=== PATIENT | female | born 1955 | race Caucasian/White ===

== ENCOUNTER 2016-11-10 10:50 | Emergency (ER) | payer OTHER ==
[~2016-11-10] VITALS: Ht 162.6 cm; Wt 73.5 kg
[~2016-11-10 10:50] MED LIST: ASPIRIN81 MG PO; BACTRIM DS1 TAB PO; CEPHALEXIN500 MG PO; GLU850 PO; SIMVASTATIN40 M1 PO
[2016-11-10 15:31] LABS: BASOPHIL % 0.1 % (0-2)
[2016-11-10 15:35] LABS: PLATELET COUNT 72 x10^3mcL (130-400); RED CELL DISTRIBUTION WIDTH 15.7 % (11.5-14.5)
[2016-11-10 15:48] LABS: ALKALINE PHOSPHATASE 229 U/L (46-116); ALT/SGPT 38 U/L (14-59); AMYLASE 56 U/L (25-115); AST/SGOT 49 U/L (15-37); BILIRUBIN TOTAL 1.7 mg/dL (0.20-1.00); CALCIUM 8.5 mg/dL (8.5-10.1); CARBON DIOXIDE 27.2 mmol/L (21-32); CHLORIDE SERUM 107 mmol/L (98-107); CREATININE SERUM 0.6 mg/dL (0.6-1.0); GFR1 > 60 mL/min; GLUCOSE SERUM 94 mg/dL (74-106); LIPASE 153 IU/L (73-393); POTASSIUM SERUM 3.9 mmol/L (3.5-5.1); SODIUM SERUM 142 mmol/L (136-145); TOTAL PROTEIN, SERUM 6.2 g/dL (6.4-8.2)
[2016-11-10 15:49] LABS: ALBUMIN 2.9 g/dL (3.4-5.0)
[2016-11-10 17:25] VITALS: BP 117/58
== END 2016-11-10 17:25 | disposition home or self-care (01) ==
LOC: ED 10:50
PROVIDERS: Emergency Medicine
DX: R10.13 Epigastric pain (principal); R11.10 Vomiting, unspecified; E11.9 Type 2 diabetes mellitus without complications; Z79.899 Other long term (current) drug therapy
CPT/HCPCS: 83880; J2270; J2405; J3490; J7030; Q0092

== ENCOUNTER 2017-02-21 19:33 | Emergency (ER) | payer OTHER ==
[2017-02-21 19:38] VITALS: BP 147/73
== END 2017-02-21 20:18 | disposition home or self-care (01) ==
LOC: ED 19:33
DX: J30.9 Allergic rhinitis, unspecified (principal); R03.0 Elevated blood-pressure reading, without diagnosis of hypertension; E11.9 Type 2 diabetes mellitus without complications; H57.8 Other specified disorders of eye and adnexa

== ENCOUNTER 2017-04-24 00:09 | Emergency (ER) | payer MEDICAID ==
[2017-04-24 02:28] LABS: BASOPHIL % 1.7 % (0-2); RED CELL DISTRIBUTION WIDTH 13.7 % (11.5-14.5)
[2017-04-24 02:37] LABS: CARBON DIOXIDE 23.6 mmol/L (21-32); CHLORIDE SERUM 107 mmol/L (98-107); CREATININE SERUM 0.7 mg/dL (0.6-1.0); GFR1 > 60 mL/min; GLUCOSE SERUM 108 mg/dL (74-106); POTASSIUM SERUM 4.3 mmol/L (3.5-5.1); SODIUM SERUM 137 mmol/L (136-145)
[2017-04-24 02:40] LABS: PLATELET COUNT 88 x10^3mcL (130-400)
[2017-04-24 02:42] LABS: ALKALINE PHOSPHATASE 290 U/L (46-116); ALT/SGPT 46 U/L (14-59); AMYLASE 53 U/L (25-115); AST/SGOT 67 U/L (15-37); BILIRUBIN TOTAL 1.46 mg/dL (0.20-1.00); LIPASE 150 IU/L (73-393); TOTAL PROTEIN, SERUM 6.9 g/dL (6.4-8.2)
[2017-04-24 02:43] LABS: ALBUMIN 2.9 g/dL (3.4-5.0)
[2017-04-24 05:19] VITALS: BP 126/69
== END 2017-04-24 05:19 | disposition home or self-care (01) ==
LOC: ED 00:09
PROVIDERS: Emergency Medicine
DX: L03.116 Cellulitis of left lower limb (principal); R10.12 Left upper quadrant pain; E11.9 Type 2 diabetes mellitus without complications
CPT/HCPCS: J0696; Q0092

== ENCOUNTER 2017-04-26 10:58 | Emergency (ER) | payer OTHER ==
[~2017-04-26] VITALS: Ht 157.5 cm; Wt 78.6 kg
[2017-04-26 11:05] VITALS: BP 131/67
== END 2017-04-26 11:31 | disposition home or self-care (01) ==
LOC: ED 10:58
DX: L03.116 Cellulitis of left lower limb (principal); I87.8 Other specified disorders of veins; E11.9 Type 2 diabetes mellitus without complications

== ENCOUNTER 2017-05-19 22:05 | Emergency (ER) | payer OTHER ==
[2017-05-19 23:21] LABS: BASOPHIL % 0.5 % (0-2)
[2017-05-19 23:22] LABS: PLATELET COUNT 72 x10^3mcL (130-400)
[2017-05-19 23:28] LABS: CALCIUM 8.3 mg/dL (8.5-10.1); CARBON DIOXIDE 26.9 mmol/L (21-32); CHLORIDE SERUM 107 mmol/L (98-107); CREATININE SERUM 0.8 mg/dL (0.6-1.0); GFR1 > 60 mL/min; GLUCOSE SERUM 122 mg/dL (74-106); POTASSIUM SERUM 3.9 mmol/L (3.5-5.1); SODIUM SERUM 140 mmol/L (136-145)
[2017-05-19 23:35] LABS: ALKALINE PHOSPHATASE 258 U/L (46-116); ALT/SGPT 47 U/L (14-59); AST/SGOT 84 U/L (15-37); BILIRUBIN TOTAL 1.4 mg/dL (0.20-1.00); TOTAL PROTEIN, SERUM 6.7 g/dL (6.4-8.2)
[2017-05-19 23:37] LABS: ALBUMIN 2.8 g/dL (3.4-5.0)
[2017-05-20 00:21] VITALS: BP 118/83
== END 2017-05-20 00:21 | disposition home or self-care (01) ==
LOC: ED 22:05
PROVIDERS: Emergency Medicine
DX: L03.116 Cellulitis of left lower limb (principal); I83.92 Asymptomatic varicose veins of left lower extremity; E11.9 Type 2 diabetes mellitus without complications; Z79.84 Long term (current) use of oral hypoglycemic drugs
CPT/HCPCS: 36415

== ENCOUNTER 2017-10-10 06:37 | Inpatient (IN) | payer OTHER ==
[~2017-10-10] VITALS: Ht 165.1 cm; Wt 76.2 kg
[2017-10-10 07:16] LABS: BASOPHIL % 0.4 % (0-2)
[2017-10-10 07:17] LABS: PLATELET COUNT 66 x10^3mcL (130-400); RED CELL DISTRIBUTION WIDTH 15.8 % (11.5-14.5)
[2017-10-10 07:26] LABS: CALCIUM 8.2 mg/dL (8.5-10.1); CARBON DIOXIDE 23.2 mmol/L (21-32); CHLORIDE SERUM 110 mmol/L (98-107); CREATININE SERUM 0.6 mg/dL (0.6-1.0); GFR1 > 60 mL/min; GLUCOSE SERUM 121 mg/dL (74-106); POTASSIUM SERUM 3.8 mmol/L (3.5-5.1); SODIUM SERUM 141 mmol/L (136-145)
[2017-10-10 07:31] LABS: ALKALINE PHOSPHATASE 283 U/L (46-116); ALT/SGPT 52 U/L (14-59); AST/SGOT 61 U/L (15-37); BILIRUBIN TOTAL 2.1 mg/dL (0.20-1.00); CHOLESTEROL 167 mg/dL (<200); PHOSPHOROUS 3.5 mg/dL (2.5-4.9); TOTAL PROTEIN, SERUM 6.5 g/dL (6.4-8.2)
[2017-10-10 07:32] LABS: ALBUMIN 2.9 g/dL (3.4-5.0); HDL CHOLESTEROL 74 mg/dL (40-60)
[2017-10-10] MEDS ORDERED: METFORMIN HCL1000 MG PO (08:19)
[2017-10-10] MEDS ORDERED: LASIX20 MG PO (08:20)
[2017-10-10] MEDS ORDERED: POTASSIUM CHLO10 MEQ PO (08:20)
[2017-10-10 10:19] LABS: microscopic required? NO
[2017-10-10 10:40] LABS: UA SPECIFIC GRAVITY <=1.005 (1.005-1.035); urine erythrocyte NEGATIVE (NEGATIVE)
[2017-10-10 10:40] LABS: T3 TOTAL 1.06 ng/mL
[2017-10-10 10:44] LABS: CHOLESTEROL/HDL RATIO 2.2
[2017-10-10 10:52] LABS: AMPHETAMINE QUAL UR NONE DETECTED (NEG <=1000)
[2017-10-10 10:55] LABS: FREE T4 1.13 ng/dL (0.76-1.46); FREE THYROXINE INDEX 2.1 ug/dL (1.4-4.5); T4(THYROXINE) 6.5 ug/dL (4.7-13.3)
[2017-10-10 11:36] VITALS: BP 148/64
[2017-10-10 17:42] VITALS: BP 130/63
[2017-10-10 20:49] VITALS: BP 110/50
[2017-10-11 05:32] VITALS: BP 136/56
[2017-10-11 07:22] LABS: BASOPHIL % 0.6 % (0-2)
[2017-10-11 07:23] LABS: PLATELET COUNT 63 x10^3mcL (130-400); RED CELL DISTRIBUTION WIDTH 15.3 % (11.5-14.5)
[2017-10-11 07:38] LABS: CALCIUM 7.8 mg/dL (8.5-10.1); CARBON DIOXIDE 21.5 mmol/L (21-32); CHLORIDE SERUM 109 mmol/L (98-107); CREATININE SERUM 0.6 mg/dL (0.6-1.0); GFR1 > 60 mL/min; GLUCOSE SERUM 112 mg/dL (74-106); POTASSIUM SERUM 3.5 mmol/L (3.5-5.1); SODIUM SERUM 140 mmol/L (136-145)
[2017-10-11 07:49] LABS: BILIRUBIN DIRECT 0.9 mg/dL (0.0-0.2); BILIRUBIN TOTAL 2.5 mg/dL (0.20-1.00)
[2017-10-11 07:54] LABS: ALBUMIN 2.6 g/dL (3.4-5.0); TOTAL PROTEIN, SERUM 5.5 g/dL (6.4-8.2)
[2017-10-11 09:12] VITALS: BP 129/57
[2017-10-11 13:56] VITALS: BP 158/72
[2017-10-11 16:48] VITALS: BP 123/55
[2017-10-11 20:30] VITALS: BP 128/54
[2017-10-12 05:34] VITALS: BP 133/61
[2017-10-12 06:22] LABS: BASOPHIL % 0.5 % (0-2); PLATELET COUNT 61 x10^3mcL (130-400); RED CELL DISTRIBUTION WIDTH 15.4 % (11.5-14.5)
[2017-10-12 09:15] VITALS: BP 122/78
[2017-10-12 10:55] LABS: CALCIUM 8.1 mg/dL (8.5-10.1); CHLORIDE SERUM 114 mmol/L (98-107); CREATININE SERUM 0.6 mg/dL (0.6-1.0); GFR1 > 60 mL/min; GLUCOSE SERUM 118 mg/dL (74-106); POTASSIUM SERUM 3.9 mmol/L (3.5-5.1); SODIUM SERUM 147 mmol/L (136-145)
[2017-10-12 15:27] LABS: IRON 141 ug/dL (50-170); TOTAL IRON BINDING CAPACITY 278 ug/dL (250-450)
[2017-10-12 15:56] LABS: RED BLOOD CELLS 3.67 M/mm3 (4.10-5.10)
[2017-10-12 16:40] VITALS: BP 130/53
[2017-10-12 20:31] VITALS: BP 142/58
[2017-10-13] VITALS (7 sets, daily range): BP systolic 75–145; BP diastolic 32–61; Ht 165.1 cm; Wt 76.2 kg
[2017-10-13 06:26] LABS: BASOPHIL % 0.3 % (0-2)
[2017-10-13 06:35] LABS: CALCIUM 8.2 mg/dL (8.5-10.1); CARBON DIOXIDE 23.9 mmol/L (21-32); CHLORIDE SERUM 108 mmol/L (98-107); CREATININE SERUM 0.6 mg/dL (0.6-1.0); GFR1 > 60 mL/min; GLUCOSE SERUM 106 mg/dL (74-106); PLATELET COUNT 65 x10^3mcL (130-400); POTASSIUM SERUM 3.8 mmol/L (3.5-5.1); RED CELL DISTRIBUTION WIDTH 15.3 % (11.5-14.5); SODIUM SERUM 140 mmol/L (136-145)
[2017-10-13] MEDS ORDERED: CORGARD20 MG PO (11:55)
[2017-10-13] MEDS ORDERED: GOOD SENSE OMEP20 MG PO (11:55)
[2017-10-16 13:19] LABS: MITOCHONDRIAL ANTIBODY 4.6 Units (0.0-20.0)
== END 2017-10-13 16:22 | disposition home or self-care (01) | DRG 279 ==
LOC: ED 06:37 → DU 08:20
PROVIDERS: Emergency Medicine; Family Medicine Sports Medicine; Internal Medicine Gastroenterology; Student in an Organized Health Care Education/Training Program
PROC: 0DB68ZX Excision of Stomach, Via Natural or Artificial Opening Endoscopic, Diagnostic (ICD-10-PCS; principal; 2017-10-13 10:30)
DX: K72.00 Acute and subacute hepatic failure without coma (principal); E43 Unspecified severe protein-calorie malnutrition; E87.8 Other disorders of electrolyte and fluid balance, not elsewhere classified; E87.0 Hyperosmolality and hypernatremia; D69.6 Thrombocytopenia, unspecified; E11.65 Type 2 diabetes mellitus with hyperglycemia; K76.6 Portal hypertension; K31.89 Other diseases of stomach and duodenum; E83.51 Hypocalcemia; R74.0 Nonspecific elevation of levels of transaminase and lactic acid dehydrogenase [LDH]; Z79.82 Long term (current) use of aspirin; Z79.84 Long term (current) use of oral hypoglycemic drugs; Z79.899 Other long term (current) drug therapy; Z82.3 Family history of stroke
CPT/HCPCS: 43235; 82962; 83516; 83880; 84439; G0480; J1200; J1610; J2250; J2310; J3010; J3490; J7030; Q0092

== ENCOUNTER 2017-12-29 13:11 | Emergency (ER) | payer OTHER ==
[~2017-12-29] VITALS: Ht 165.1 cm; Wt 79.0 kg
[~2017-12-29 13:11] MED LIST changes: +CORGARD20 MG PO; +GOOD SENSE OMEP20 MG PO; +LASIX20 MG PO; +METFORMIN HCL1000 MG PO; +POTASSIUM CHLO10 MEQ PO
[2017-12-29 13:33] VITALS: Ht 165.1 cm; Wt 79.0 kg
[2017-12-29] MEDS ORDERED: LASIX20 MG PO (15:31)
[2017-12-29] MEDS ORDERED: BACTRIM DS1 TAB PO (15:31)
[2017-12-29 15:52] LABS: BASOPHIL % 0.6 % (0-2)
[2017-12-29 15:57] LABS: PLATELET COUNT 87 x10^3mcL (130-400); RED CELL DISTRIBUTION WIDTH 15.4 % (11.5-14.5)
[2017-12-29 16:01] LABS: CALCIUM 8.4 mg/dL (8.5-10.1); CARBON DIOXIDE 28.4 mmol/L (21-32); CHLORIDE SERUM 109 mmol/L (98-107); CREATININE SERUM 0.7 mg/dL (0.6-1.0); GFR1 > 60 mL/min; GLUCOSE SERUM 95 mg/dL (74-106); POTASSIUM SERUM 4.3 mmol/L (3.5-5.1); SODIUM SERUM 142 mmol/L (136-145)
[2017-12-29 17:29] VITALS: BP 139/79
== END 2017-12-29 17:29 | disposition home or self-care (01) ==
LOC: ED 13:11
PROVIDERS: Emergency Medicine
DX: L97.929 Non-pressure chronic ulcer of unspecified part of left lower leg with unspecified severity (principal); L97.919 Non-pressure chronic ulcer of unspecified part of right lower leg with unspecified severity; E11.9 Type 2 diabetes mellitus without complications
CPT/HCPCS: J1956; J7030

== ENCOUNTER 2018-04-19 21:19 | Inpatient (IN) | payer OTHER ==
[~2018-04-19] VITALS: Ht 162.6 cm; Wt 79.4 kg
[2018-04-19 22:44] LABS: BASOPHIL % 0.1 % (0-2)
[2018-04-19 22:45] LABS: PLATELET COUNT 69 x10^3mcL (130-400); RED CELL DISTRIBUTION WIDTH 16.1 % (11.5-14.5)
[2018-04-19 22:51] LABS: CALCIUM 8.5 mg/dL (8.5-10.1); CARBON DIOXIDE 27.1 mmol/L (21-32); CHLORIDE SERUM 107 mmol/L (98-107); CREATININE SERUM 0.8 mg/dL (0.6-1.0); GFR1 > 60 mL/min; GLUCOSE SERUM 170 mg/dL (74-106); POTASSIUM SERUM 3.1 mmol/L (3.5-5.1); SODIUM SERUM 143 mmol/L (136-145)
[2018-04-19 22:58] LABS: ALBUMIN 2.6 g/dL (3.4-5.0); ALKALINE PHOSPHATASE 190 U/L (46-116); ALT/SGPT 44 U/L (14-59); AST/SGOT 78 U/L (15-37); BILIRUBIN TOTAL 2.91 mg/dL (0.20-1.00)
[2018-04-20 00:51] LABS: MAGNESIUM 1.7 mg/dL (1.8-2.4); PHOSPHOROUS 2.5 mg/dL (2.5-4.9)
[2018-04-20 00:54] LABS: CHOLESTEROL/HDL RATIO 3.1
[2018-04-20 01:43] LABS: UA SPECIFIC GRAVITY <=1.005 (1.005-1.035); microscopic required? YES; urine erythrocyte TRACE (NEGATIVE)
[2018-04-20 02:28] VITALS: BP 122/48
[2018-04-20 06:17] VITALS: BP 94/43
[2018-04-20 06:23] LABS: CALCIUM 7.9 mg/dL (8.5-10.1); CARBON DIOXIDE 24.8 mmol/L (21-32); CHLORIDE SERUM 112 mmol/L (98-107); CREATININE SERUM 0.7 mg/dL (0.6-1.0); GFR1 > 60 mL/min; GLUCOSE SERUM 106 mg/dL (74-106); MAGNESIUM 1.7 mg/dL (1.8-2.4); PHOSPHOROUS 2.3 mg/dL (2.5-4.9); POTASSIUM SERUM 3.7 mmol/L (3.5-5.1); SODIUM SERUM 143 mmol/L (136-145)
[2018-04-20 06:26] LABS: BASOPHIL % 0.3 % (0-2)
[2018-04-20 06:35] LABS: PLATELET COUNT 60 x10^3mcL (130-400); RED CELL DISTRIBUTION WIDTH 16.2 % (11.5-14.5)
[2018-04-20 09:54] VITALS: BP 127/51
[2018-04-20 16:40] VITALS: BP 110/49
[2018-04-20 20:58] VITALS: BP 141/65
[2018-04-21 05:20] VITALS: BP 107/51
[2018-04-21 06:11] LABS: BASOPHIL % 0.6 % (0-2)
[2018-04-21 06:25] LABS: CALCIUM 7.5 mg/dL (8.5-10.1); CARBON DIOXIDE 22.5 mmol/L (21-32); CHLORIDE SERUM 114 mmol/L (98-107); CREATININE SERUM 0.7 mg/dL (0.6-1.0); GFR1 > 60 mL/min; GLUCOSE SERUM 83 mg/dL (74-106); MAGNESIUM 1.7 mg/dL (1.8-2.4); PHOSPHOROUS 2.8 mg/dL (2.5-4.9); POTASSIUM SERUM 3.8 mmol/L (3.5-5.1); SODIUM SERUM 146 mmol/L (136-145)
[2018-04-21 06:37] LABS: PLATELET COUNT 66 x10^3mcL (130-400)
[2018-04-21 08:57] VITALS: BP 128/52
[2018-04-21 11:44] VITALS: BP 128/52
[2018-04-21] MEDS ORDERED: KEFLEX500 M1 PO (13:02)
== END 2018-04-21 14:23 | disposition home or self-care (01) | DRG 383 ==
LOC: ED 21:19 → MU 04-20 00:04
PROVIDERS: Emergency Medicine; Family Medicine
DX: L03.116 Cellulitis of left lower limb (principal); E43 Unspecified severe protein-calorie malnutrition; D69.3 Immune thrombocytopenic purpura; I87.2 Venous insufficiency (chronic) (peripheral); E83.42 Hypomagnesemia; E83.39 Other disorders of phosphorus metabolism; N39.0 Urinary tract infection, site not specified; R74.0 Nonspecific elevation of levels of transaminase and lactic acid dehydrogenase [LDH]; E87.6 Hypokalemia
CPT/HCPCS: 83880; J0690; J0696; J1885; J1940; J3475; J7030; Q0092

== ENCOUNTER 2018-05-03 08:16 | Emergency (ER) | payer OTHER ==
[~2018-05-03] VITALS: Ht 165.1 cm; Wt 76.2 kg
[~2018-05-03 08:16] MED LIST changes: +KEFLEX500 M1 PO
[2018-05-03 08:23] VITALS: Ht 165.1 cm; Wt 76.2 kg
[2018-05-03 10:54] VITALS: BP 132/74
== END 2018-05-03 10:54 | disposition home or self-care (01) ==
LOC: ED 08:16
DX: I83.92 Asymptomatic varicose veins of left lower extremity (principal)
CPT/HCPCS: Q0092

== ENCOUNTER 2018-06-15 12:37 | Inpatient (IN) | payer MEDICAID ==
[~2018-06-15] VITALS: Ht 165.1 cm; Wt 84.0 kg
[2018-06-15 12:43] VITALS: Ht 165.1 cm; Wt 84.0 kg
[2018-06-15 13:28] LABS: BASOPHIL % 0.3 % (0-2)
[2018-06-15 13:31] LABS: RED CELL DISTRIBUTION WIDTH 15.4 % (11.5-14.5)
[2018-06-15 13:32] LABS: PLATELET COUNT 45 x10^3mcL (130-400)
[2018-06-15 13:42] LABS: CALCIUM 7.5 mg/dL (8.5-10.1); CARBON DIOXIDE 21.4 mmol/L (21-32); CHLORIDE SERUM 101 mmol/L (98-107); CREATININE SERUM 0.7 mg/dL (0.6-1.0); GFR1 > 60 mL/min; GLUCOSE SERUM 130 mg/dL (74-106); POTASSIUM SERUM 3.4 mmol/L (3.5-5.1); SODIUM SERUM 131 mmol/L (136-145)
[2018-06-15 13:54] LABS: ALKALINE PHOSPHATASE 151 U/L (46-116); ALT/SGPT 52 U/L (14-59); AMYLASE 38 U/L (25-115); AST/SGOT 108 U/L (15-37); BILIRUBIN TOTAL 1.9 mg/dL (0.20-1.00); LIPASE 131 IU/L (73-393)
[2018-06-15 13:55] LABS: ALBUMIN 2.2 g/dL (3.4-5.0)
[2018-06-15 15:11] LABS: microscopic required? YES; urine erythrocyte 1+ (NEGATIVE)
[2018-06-15 16:18] LABS: MAGNESIUM 1.6 mg/dL (1.8-2.4); PHOSPHOROUS 1.6 mg/dL (2.5-4.9)
[2018-06-15 16:21] LABS: CHOLESTEROL/HDL RATIO 3.4
[2018-06-15 16:30] LABS: AMPHETAMINE QUAL UR NONE DETECTED (See below)
[2018-06-15] MEDS ORDERED: IBUPROFEN400 MG PO (16:51)
[2018-06-15 17:18] VITALS: BP 142/52
[2018-06-15 21:17] VITALS: BP 117/42
[2018-06-16 04:50] VITALS: BP 122/48
[2018-06-16 07:14] LABS: CALCIUM 6.9 mg/dL (8.5-10.1); CARBON DIOXIDE 23.3 mmol/L (21-32); CHLORIDE SERUM 107 mmol/L (98-107); CREATININE SERUM 0.6 mg/dL (0.6-1.0); GFR1 > 60 mL/min; GLUCOSE SERUM 81 mg/dL (74-106); MAGNESIUM 1.7 mg/dL (1.8-2.4); PHOSPHOROUS 2.3 mg/dL (2.5-4.9); POTASSIUM SERUM 3.6 mmol/L (3.5-5.1); SODIUM SERUM 136 mmol/L (136-145)
[2018-06-16 07:40] LABS: BASOPHIL % 0.2 % (0-2); RED CELL DISTRIBUTION WIDTH 15.4 % (11.5-14.5)
[2018-06-16 07:41] LABS: PLATELET COUNT 41 x10^3mcL (130-400)
[2018-06-16 08:43] VITALS: BP 108/48
[2018-06-16 21:00] VITALS: BP 118/56
[2018-06-17 05:39] VITALS: BP 110/45; BP 96/47
[2018-06-17 07:09] LABS: CALCIUM 7.4 mg/dL (8.5-10.1); CARBON DIOXIDE 25.1 mmol/L (21-32); CHLORIDE SERUM 105 mmol/L (98-107); CREATININE SERUM 0.8 mg/dL (0.6-1.0); GFR1 > 60 mL/min; GLUCOSE SERUM 133 mg/dL (74-106); MAGNESIUM 1.9 mg/dL (1.8-2.4); PHOSPHOROUS 2.9 mg/dL (2.5-4.9); POTASSIUM SERUM 3.7 mmol/L (3.5-5.1); SODIUM SERUM 133 mmol/L (136-145)
[2018-06-17 07:25] LABS: BASOPHIL % 0.5 % (0-2)
[2018-06-17 07:27] LABS: PLATELET COUNT 50 x10^3mcL (130-400); RED CELL DISTRIBUTION WIDTH 15.4 % (11.5-14.5)
[2018-06-17 08:20] VITALS: BP 134/69
[2018-06-17] MEDS ORDERED: KEF500 PO (09:32)
[2018-06-17 10:04] VITALS: BP 134/69
== END 2018-06-17 11:49 | disposition home or self-care (01) | DRG 720 ==
LOC: ED 12:37 → MU 15:46
PROVIDERS: Emergency Medicine; Family Medicine
DX: A41.9 Sepsis, unspecified organism (principal); N17.0 Acute kidney failure with tubular necrosis; E43 Unspecified severe protein-calorie malnutrition; D69.3 Immune thrombocytopenic purpura; K74.60 Unspecified cirrhosis of liver; E83.51 Hypocalcemia; D64.9 Anemia, unspecified; E11.9 Type 2 diabetes mellitus without complications; L03.116 Cellulitis of left lower limb; R65.20 Severe sepsis without septic shock; I87.2 Venous insufficiency (chronic) (peripheral); K59.00 Constipation, unspecified; R80.9 Proteinuria, unspecified; E87.6 Hypokalemia; Z68.29 Body mass index [BMI] 29.0-29.9, adult; Z82.3 Family history of stroke
CPT/HCPCS: 82962; 83880; 87106; C9113; J0295; J0690; J1940; J2543; J3370; J3490; J7030; J7040; Q0092; Q9967

== ENCOUNTER 2018-11-15 18:01 | Inpatient (IN) | payer OTHER | END 2018-11-17 17:50 | disposition home or self-care (01) | LOC: ED 18:01 → DU 19:46 → ED 18:01 → DU 19:46 → ED 18:01 → DU 19:46 → ED 18:01 → DU 19:46 | DX: A41.9 Sepsis, unspecified organism (principal); E43 Unspecified severe protein-calorie malnutrition; L03.116 Cellulitis of left lower limb; E87.1 Hypo-osmolality and hyponatremia; E83.42 Hypomagnesemia; E83.51 Hypocalcemia; E11.65 Type 2 diabetes mellitus with hyperglycemia ==

== ENCOUNTER 2018-12-05 07:39 | Emergency (ER) | payer OTHER ==
[~2018-12-05] VITALS: Ht 165.1 cm; Wt 75.7 kg
[~2018-12-05 07:39] MED LIST changes: +ALDACTONE50 MG PO; +IBUPROFEN400 MG PO; +INDERAL LA80 MG PO; +KEF500 PO
[2018-12-05 07:46] VITALS: Ht 165.1 cm; Wt 75.7 kg
[2018-12-05 08:24] VITALS: BP 132/73
== END 2018-12-05 08:24 | disposition home or self-care (01) ==
LOC: ED 07:39
DX: I83.812 Varicose veins of left lower extremity with pain (principal); I10 Essential (primary) hypertension

== ENCOUNTER 2019-07-05 21:48 | Inpatient (IN) | payer OTHER ==
[~2019-07-05] VITALS: Ht 165.1 cm; Wt 74.9 kg
--- NOTE | 2019-07-05 22:15 | NUR ---
MSE COMPLETED BY MD KIRK
--- NOTE | 2019-07-05 22:17 | NUR ---
code brain activated
--- NOTE | 2019-07-05 22:18 | NUR ---
PT TO RADIOLOGY VIA [facility]
--- NOTE | 2019-07-05 22:28 | NUR ---
PT BACK FROM CT VIA [facility].
--- NOTE | 2019-07-05 22:29 | NUR ---
TELENEURO SET UP AT BEDSIDE FOR EVALUATION.
--- NOTE | 2019-07-05 22:30 | NUR ---
LAB CALLED AT EXT [phone] FOR BLOOD DRAW ON PT
--- NOTE | 2019-07-05 22:39 | NUR ---
LAB AT BEDSIDE.
--- NOTE | 2019-07-05 22:47 | NUR ---
XRAY AT BEDSIDE.
--- NOTE | 2019-07-05 22:59 | NUR ---
PT LAYING ON GURNEY IN NAD AT THIS TIME AWAITING TELENEURO EVALUATION. PT AT BEDSIDE. CM AND [address] WILL CONTINUE TO MONITOR.
[2019-07-05 23:00] LABS: BASOPHIL % 0.5 % (0-2); PLATELET COUNT 67 x10^3mcL (130-400); RED CELL DISTRIBUTION WIDTH 15.7 % (11.5-14.5)
[2019-07-05 23:09] LABS: CALCIUM 8.4 mg/dL (8.5-10.1); CARBON DIOXIDE 28.2 mmol/L (21-32); CHLORIDE SERUM 108 mmol/L (98-107); CREATININE SERUM 0.7 mg/dL (0.6-1.0); GFR1 > 60 mL/min; GLUCOSE SERUM 102 mg/dL (74-106); POTASSIUM SERUM 4.4 mmol/L (3.5-5.1); SODIUM SERUM 141 mmol/L (136-145)
[2019-07-05 23:13] LABS: ALKALINE PHOSPHATASE 167 U/L (46-116); ALT/SGPT 66 U/L (14-59); AST/SGOT 98 U/L (15-37); BILIRUBIN TOTAL 2.4 mg/dL (0.20-1.00); TOTAL PROTEIN, SERUM 6.2 g/dL (6.4-8.2)
[2019-07-05 23:20] LABS: microscopic required? NO
[2019-07-05 23:20] LABS: ALBUMIN 2.6 g/dL (3.4-5.0)
--- NOTE | 2019-07-05 23:26 | NUR ---
PT STILL AWAITING TELENEURO ASSESSMENT. MAINOR MOTORCYCLE BUILDER AWARE AND TO DIRECTOR OF SECURITIES AND REAL ESTATE ONCALL FOR TELENEURO.
--- NOTE | 2019-07-05 23:35 | NUR ---
NOTIFIED BY MAINOR [employer] THAT THERE WAS A FOLLOW UP FOR SOC TELENEURO. SOC TELENEURO AWARE THAT PT IS CODE BRAIN AND WE ARE ATTEMPTING TO R/O STROKE. AWAITING TELENEURO ASSESSMENT.
--- NOTE | 2019-07-05 23:37 | NUR ---
TELENEURO ASSESSMENT IN PROGRESS AT THIS TIME.
--- NOTE | 2019-07-05 23:43 | NUR ---
TELELACHELLEURO COMPLETED, MD REAGAN SON
[2019-07-05 23:44] LABS: UA SPECIFIC GRAVITY <=1.005 (1.005-1.035); urine erythrocyte NEGATIVE (NEGATIVE)
--- NOTE | 2019-07-06 00:56 | NUR ---
REPORT CALLED TO KENYON CROSS.
--- NOTE | 2019-07-06 01:11 | NUR ---
PT TRANSFERED TO TELE AT THIS TIME IN NAD. PT A&0X4, SPEAKING FULL CLEAR SENTENCES. PT BREATHING EVEN AND UNLABORED. PT TRANSPORTED VIA GURNEY BY MYSELF AND LIOR EMT. NO CHANGE IN ASSESSMENT UPON PRESENTATION TO ED. IV INTACT AND FLOWS WITHOUT COMPLICATION. ACCOMPANIED BY PT SO. KENYON CROSS AT BEDSIDE TO ASSUME CARE OF PT. PT ABLE TO MOVE SELF OVER [facility] WITH MINIMAL ASSISTANCE.
[2019-07-06 01:22] VITALS: BP 135/48
[2019-07-06 01:26] VITALS: Ht 165.1 cm; Wt 74.9 kg
--- NOTE | 2019-07-06 01:26 | NUR ---
RECEIVED PT FROM ED VIA [email or web address], CAME IN DUE TO LEFT SIDED NUMBNESS. AAOX4. DENIES HEADACHE/ DIZZINESS. FOLLOWS COMMANDS. SPEECH IS CLEAR. NO FACIAL DROOP/ARM DRIFT. HAND MONOTYPE MECHANIC ARE STRONG AND EQUAL. DENIES NUMBNESS/TINGLING SENSATION. NO SOB NOTED, LUNG SOUNDS CTA. DENIES CHEST PAIN/PRESSURE, SR ON THE MONITOR. W/ +3 EDEMA ON BLE. WEAK PEDAL PULSES. DENIES ABDOMINAL DISCOMFORT. BOWEL SOUNDS ACTIVE. ABDOMEN IS SOFT. VOIDS. W/ BLACK DISCOLORATION ON BLE AND DRY SKIN ON THE LLE. IV SITE PATENT AND INTACT. SIDE RAILS UPX2. CALL LIGHT ON REACH. PRIMARY NURSE KENYON AT BEDSIDE FOR CONTINUITY OF CARE
--- NOTE | 2019-07-06 01:27 | NUR ---
RECEIVED PT FROM TAY ANDERSON. PT A/OX4. DENIES PAIN. DENIES SOB ON RA. IV PATENT. ORIENTED PT ROOM AND SURROUNDINGS. AT BEDSIDE. CALL LIGHT WITHIN REACH, BED IN LOW POSITION. WILL CONTINUE TO MONITOR.
[2019-07-06 01:33] LABS: FREE T4 1.23 ng/dL (0.76-1.46); FREE THYROXINE INDEX 2.4 ug/dL (1.4-4.5); T4(THYROXINE) 6.8 ug/dL (4.7-13.3)
--- NOTE | 2019-07-06 03:03 | NUR ---
PT RESTING IN NO ACUTE DISTRESS. RR EVEN AND UNLABORED. CALL LIGHT WITHIN REACH, BED IN LOW POSITION. WILL CONTINUE TO MONITOR.
[2019-07-06 06:03] VITALS: BP 109/47
[2019-07-06 06:22] LABS: BASOPHIL % 0.5 % (0-2)
[2019-07-06 06:36] LABS: CALCIUM 8.2 mg/dL (8.5-10.1); CARBON DIOXIDE 27.6 mmol/L (21-32); CHLORIDE SERUM 112 mmol/L (98-107); CREATININE SERUM 0.6 mg/dL (0.6-1.0); GFR1 > 60 mL/min; GLUCOSE SERUM 71 mg/dL (74-106); MAGNESIUM 1.8 mg/dL (1.8-2.4); PHOSPHOROUS 4.4 mg/dL (2.5-4.9); POTASSIUM SERUM 4.2 mmol/L (3.5-5.1); SODIUM SERUM 145 mmol/L (136-145)
[2019-07-06 07:24] LABS: PLATELET COUNT 59 x10^3mcL (130-400); RED CELL DISTRIBUTION WIDTH 15.9 % (11.5-14.5)
--- NOTE | 2019-07-06 07:40 | NUR ---
RECIEVED REPORT FROM [facility] NURSE KENYON. PATIENT CURRENTLY OBSERVED SLEEPING IN BED. AT THE BEDSIDE. PATIENT HAS A RAC IV THAT IS SALINE LOCKED. CHINESE SPEAKING. BED IN THE LOW POSITION. SAFETY PRECAUTIONS IN PLACE. CALL LIGHT WITHIN REACH TO RIGHT SIDE. WILL CONTINUE TO MONITOR.
[2019-07-06 08:45] VITALS: BP 111/55
[2019-07-06 08:56] LABS: T3 TOTAL 0.87 ng/mL
[2019-07-06 12:47] VITALS: BP 126/52
--- NOTE | 2019-07-06 13:18 | NUR ---
PATIENT SITTING UP IN BED EATING. ABLE TO EAT INDEPENEDENTLY WITHOUT ASSIST. NO REPORT OF PAIN OR DISCOMFORT AT THIS TIME.
[2019-07-06 17:15] VITALS: BP 117/46
--- NOTE | 2019-07-06 18:35 | NUR ---
PATIENT CURRENTLY OBSERVED SITTING UP IN BED AND EATING. SPOUSE AND SON AT BEDSIDE. RAC CURRENTLY SALINE LOCKED. BED IN THE LOW POSITION. WILL ENDORSE CARE TO NIGHT NURSE.
[2019-07-06 21:00] VITALS: BP 100/44
--- NOTE | 2019-07-06 21:02 | NUR ---
RECIEVED PT RESTING IN BED WITH 2 FAMILY MEMBERS AT BEDSIDE, ASSESSMENT PERFORMED AT THIS TIME, PT IS A/OX4 NO COMPLAINTS OF FINK OR DIZZINESS AT THIS TIME, PT DENIES PAIN OR SOB AT THIS TIME, PT HAS SMALL LEFT SIDE FACIAL DROOP, TIRE SPECIALIST STRENGTH EQUAL, ALL PT NEEDS ATTENDED TO AT THIS TIME, SAFETY PRECAUTIONS IN PLACE, WILL CONTINUE TO MONITOR
--- NOTE | 2019-07-07 00:30 | NUR ---
PT RESTING IN BED WITH FAMILY AT BEDSIDE, NO ACUTE DISTRESS AT THIS TIME, PT DENIES PAIN OR SOB AT THIS TIME, ALL NEEDS ATTENDED TO, SAFETY PRECAUTIONS IN PLACE, WILL MONITOR
[2019-07-07 05:45] VITALS: BP 107/45
--- NOTE | 2019-07-07 06:10 | NUR ---
PT RESTED COMFORTABLY THROUGH THE NIGHT WITH FAMILY MEMBER AT BEDSIDE, PT DENIED PAIN, SOB, OR NUMBNESS DURING CARE, ALL PT NEEDS ATTENDED TO DURING SHIFT, SAFETY PRECAUTIONS REMAINED IN PLACE, WILL CONTINUE TO MONITOR AND ENDORSE CARE
--- NOTE | 2019-07-07 08:22 | NUR ---
AAO TIMES 4. TELE # 33 SR. VS'S STABLE. NO SOB. LUNGS CTA. BS'S ACTIVE TIMES 4. COOPERATIVE. IV SITE CDI. NO C/O PAIN. NO SOB. SLIGHT LEFT SIDED FACIAL DROOP. PERSON WITH GENERALIZED WEAKNESS. AT BEDSIDE, SUPPORTIVE AND CARING.
[2019-07-07 08:49] VITALS: BP 109/51
[2019-07-07] MEDS ORDERED: LIPI20 PO (11:15)
[2019-07-07] MEDS ORDERED: ASPIR 8181 MG PO (11:15)
[2019-07-07 11:59] VITALS: BP 127/64
--- NOTE | 2019-07-07 14:24 | NUR ---
ECHOCARDIOGRAM/BUBBLE COMPLETED
--- NOTE | 2019-07-07 17:26 | NUR ---
LUCIANO WAS TRYING TO GET HER A REHAB FACILITY THROUGH [employer], BUT WAS NOT SUCCESSFUL. MEANWHILE THE PATIENT AND HER DID NOT WANT TO WAIT ANYMORE, HE SAID HE WANTS TO TAKE HER HOME AND HE WILL ARRANGE THROUGH [facility] SOMEWHERE. REJI DID CALL HIM WHILE I WAS IN THE ROOM TO ARRANGE FOR PT. GABRIEL HAMMOND SESSIONS CLERK WAS CALLED AND WE CHANGED HER DISCHARGE STATUS TO HOME HEALTH WITH PT VIA TELEPHONE, AND A RESIDENT WILL WRITE THE PRESCRIPTION FOR HER MEDICATIONS, AND I WILL GIVE IT TO THEM. I GAVE DISCHARGE INSTRUCTIONS TO PATIENT, REMOVED THE SALINE LOCK ANGIO INTACT. THE PATIENT AND ARE HAPPIER WITH THIS PLAN.
--- NOTE | 2019-07-07 17:43 | NUR ---
ALSO TEACHING WAS GIVEN REGARDING STROKE SIGNS AND SYMPTOMS AND TO CALL 911 IMMEDIATELY IS THESE SIGNS APPEAR.
== END 2019-07-07 17:37 | disposition home health service (06) | DRG 47 ==
LOC: ED 21:48 → DU 07-06 00:05
PROVIDERS: Emergency Medicine; ADMIT Internal Medicine
DX: G45.9 Transient cerebral ischemic attack, unspecified (principal); D69.59 Other secondary thrombocytopenia; D68.9 Coagulation defect, unspecified; E44.0 Moderate protein-calorie malnutrition; E83.51 Hypocalcemia; K74.60 Unspecified cirrhosis of liver; D53.9 Nutritional anemia, unspecified; I10 Essential (primary) hypertension; Z68.29 Body mass index [BMI] 29.0-29.9, adult
CPT/HCPCS: 82962; 84439; 97116-GP; 97530-GP; G0378; J1940; Q0092; Q9967

== ENCOUNTER 2019-07-20 15:48 | Inpatient (IN) | payer OTHER ==
[~2019-07-20] VITALS: Ht 165.1 cm; Wt 73.9 kg
[~2019-07-20 15:48] MED LIST changes: +ASPIR 8181 MG PO; +LIPI20 PO
[2019-07-20 15:52] VITALS: Ht 165.1 cm; Wt 73.9 kg
[2019-07-20 17:09] LABS: BASOPHIL % 0.4 % (0-2)
[2019-07-20 17:10] LABS: PLATELET COUNT 73 x10^3mcL (130-400); RED CELL DISTRIBUTION WIDTH 16.1 % (11.5-14.5)
[2019-07-20 17:14] LABS: microscopic required? NO
[2019-07-20 17:24] LABS: CALCIUM 8.2 mg/dL (8.5-10.1); CARBON DIOXIDE 17.5 mmol/L (21-32); CHLORIDE SERUM 109 mmol/L (98-107); CREATININE SERUM 0.7 mg/dL (0.6-1.0); GFR1 > 60 mL/min; GLUCOSE SERUM 90 mg/dL (74-106); POTASSIUM SERUM 3.4 mmol/L (3.5-5.1); SODIUM SERUM 139 mmol/L (136-145)
[2019-07-20 17:35] LABS: ALKALINE PHOSPHATASE 194 U/L (46-116); ALT/SGPT 58 U/L (14-59); AST/SGOT 78 U/L (15-37); BILIRUBIN TOTAL 2.9 mg/dL (0.20-1.00); HDL CHOLESTEROL 51 mg/dL (40-60); LIPASE 154 IU/L (73-393); MAGNESIUM 1.9 mg/dL (1.8-2.4); T4(THYROXINE) 5.5 ug/dL (4.7-13.3); TOTAL PROTEIN, SERUM 6.7 g/dL (6.4-8.2)
[2019-07-20 17:36] LABS: ALBUMIN 2.5 g/dL (3.4-5.0)
[2019-07-20 17:37] LABS: CHOLESTEROL 134 mg/dL (<200)
[2019-07-20 17:47] LABS: urine erythrocyte NEGATIVE (NEGATIVE)
[2019-07-20 17:55] LABS: AMPHETAMINE QUAL UR NONE DETECTED (See below)
[2019-07-20] MEDS ORDERED: LACTULOSE10 GM/152 PO (18:48)
[2019-07-20] MEDS ORDERED: OMEPRAZOLE40 M1 PO (18:48)
[2019-07-20 20:31] VITALS: BP 116/55
[2019-07-21 05:34] VITALS: BP 117/54
[2019-07-21 06:43] LABS: BASOPHIL % 0.4 % (0-2)
[2019-07-21 06:59] LABS: CARBON DIOXIDE 17.3 mmol/L (21-32); CHLORIDE SERUM 111 mmol/L (98-107); CREATININE SERUM 0.7 mg/dL (0.6-1.0); GFR1 > 60 mL/min; GLUCOSE SERUM 133 mg/dL (74-106); MAGNESIUM 1.9 mg/dL (1.8-2.4); PHOSPHOROUS 3.7 mg/dL (2.5-4.9); POTASSIUM SERUM 3.7 mmol/L (3.5-5.1); SODIUM SERUM 140 mmol/L (136-145)
[2019-07-21 07:03] LABS: PLATELET COUNT 69 x10^3mcL (130-400); RED CELL DISTRIBUTION WIDTH 16.2 % (11.5-14.5)
[2019-07-21 07:06] LABS: BILIRUBIN DIRECT 0.97 mg/dL (0.0-0.2); BILIRUBIN TOTAL 2.4 mg/dL (0.20-1.00)
[2019-07-21 07:36] LABS: ALBUMIN 2.2 g/dL (3.4-5.0)
[2019-07-21 08:00] VITALS: BP 130/65
[2019-07-21 12:00] VITALS: BP 152/70
[2019-07-21 16:34] VITALS: BP 123/58
[2019-07-21 21:00] VITALS: BP 131/60
[2019-07-22 04:50] VITALS: BP 119/59
[2019-07-22 06:21] LABS: BASOPHIL % 0.3 % (0-2)
[2019-07-22 06:27] LABS: PLATELET COUNT 56 x10^3mcL (130-400); RED CELL DISTRIBUTION WIDTH 15.9 % (11.5-14.5)
[2019-07-22 06:52] LABS: ALKALINE PHOSPHATASE 178 U/L (46-116); ALT/SGPT 47 U/L (14-59); AST/SGOT 67 U/L (15-37); BILIRUBIN TOTAL 2.85 mg/dL (0.20-1.00); CALCIUM 7.6 mg/dL (8.5-10.1); CARBON DIOXIDE 17.6 mmol/L (21-32); CHLORIDE SERUM 108 mmol/L (98-107); CREATININE SERUM 0.6 mg/dL (0.6-1.0); GFR1 > 60 mL/min; GLUCOSE SERUM 95 mg/dL (74-106); POTASSIUM SERUM 3.5 mmol/L (3.5-5.1); SODIUM SERUM 136 mmol/L (136-145)
[2019-07-22 07:02] LABS: TOTAL PROTEIN, SERUM 5.5 g/dL (6.4-8.2)
[2019-07-22 08:55] VITALS: BP 103/43
[2019-07-22] MEDS ORDERED: LACTULOSE10 GM/152 PO (10:01)
[2019-07-22] MEDS ORDERED: XIFAXAN550 M1 PO (11:55)
[2019-07-22] MEDS ORDERED: ALDACTONE25 MG PO (11:55)
[2019-07-22 12:04] VITALS: BP 137/50
== END 2019-07-22 14:28 | disposition home or self-care (01) | DRG 279 ==
LOC: ED 15:48 → DU 18:44
PROVIDERS: Emergency Medicine; ADMIT General Practice
DX: K72.00 Acute and subacute hepatic failure without coma (principal); I21.A1 Myocardial infarction type 2; D89.89 Other specified disorders involving the immune mechanism, not elsewhere classified; E44.0 Moderate protein-calorie malnutrition; D68.4 Acquired coagulation factor deficiency; D69.59 Other secondary thrombocytopenia; E83.51 Hypocalcemia; E87.2 Acidosis; K74.69 Other cirrhosis of liver; E87.6 Hypokalemia; Z68.28 Body mass index [BMI] 28.0-28.9, adult; Z86.73 Personal history of transient ischemic attack (TIA), and cerebral infarction without residual deficits
CPT/HCPCS: 82962; 83516; G0378; G0480; Q0092

== ENCOUNTER 2019-11-17 14:17 | Emergency (ER) | payer OTHER ==
[~2019-11-17] VITALS: Ht 165.1 cm; Wt 76.2 kg
[~2019-11-17 14:17] MED LIST changes: +ALDACTONE25 MG PO; +BACTRIM1 TAB PO; +LACTULOSE10 GM/152 PO; +MACRODANTIN100 M1 PO; +OMEPRAZOLE40 M1 PO; +XIFAXAN550 M1 PO
[2019-11-17 14:20] VITALS: Ht 165.1 cm; Wt 76.2 kg
[2019-11-17 16:54] LABS: BASOPHIL % 0.6 % (0-2)
[2019-11-17 16:59] LABS: PLATELET COUNT 79 x10^3mcL (130-400)
[2019-11-17 18:04] LABS: CARBON DIOXIDE 22.7 mmol/L (21-32); CHLORIDE SERUM 108 mmol/L (98-107); CREATININE SERUM 0.7 mg/dL (0.6-1.0); GFR1 > 60 mL/min; GLUCOSE SERUM 108 mg/dL (74-106); POTASSIUM SERUM 3.9 mmol/L (3.5-5.1); SODIUM SERUM 140 mmol/L (136-145)
[2019-11-17 18:11] LABS: ALKALINE PHOSPHATASE 138 U/L (46-116); ALT/SGPT 46 U/L (14-59); AST/SGOT 72 U/L (15-37); BILIRUBIN TOTAL 2.3 mg/dL (0.20-1.00)
[2019-11-17 18:18] LABS: ALBUMIN 1.9 g/dL (3.4-5.0); TOTAL PROTEIN, SERUM 5.6 g/dL (6.4-8.2)
[2019-11-17 19:32] VITALS: BP 125/48
== END 2019-11-17 19:32 | disposition home or self-care (01) ==
LOC: ED 14:17
PROVIDERS: Emergency Medicine
DX: D64.9 Anemia, unspecified (principal); R42 Dizziness and giddiness; N39.0 Urinary tract infection, site not specified; R22.43 Localized swelling, mass and lump, lower limb, bilateral; I10 Essential (primary) hypertension; Z86.73 Personal history of transient ischemic attack (TIA), and cerebral infarction without residual deficits; E11.9 Type 2 diabetes mellitus without complications
CPT/HCPCS: 36415; 83880; J8597; Q0092

== ENCOUNTER 2019-12-11 11:13 | Emergency (ER) | payer OTHER ==
[~2019-12-11] VITALS: Ht 154.9 cm; Wt 82.6 kg
[2019-12-11 11:18] VITALS: Ht 154.9 cm; Wt 82.6 kg
[2019-12-11 12:31] LABS: CALCIUM 7.5 mg/dL (8.5-10.1); CARBON DIOXIDE 21.4 mmol/L (21-32); CREATININE SERUM 1.1 mg/dL (0.6-1.0); POTASSIUM SERUM 4.1 mmol/L (3.5-5.1)
[2019-12-11 12:34] LABS: BASOPHIL % 0.4 % (0-2)
[2019-12-11 12:35] LABS: PLATELET COUNT 91 x10^3mcL (130-400); RED CELL DISTRIBUTION WIDTH 14.8 % (11.5-14.5)
[2019-12-11 12:45] LABS: ALBUMIN 1.6 g/dL (3.4-5.0); TOTAL PROTEIN, SERUM 5.4 g/dL (6.4-8.2)
[2019-12-11 13:20] VITALS: BP 118/52
== END 2019-12-11 13:20 | disposition home or self-care (01) ==
LOC: ED 11:13
PROVIDERS: Emergency Medicine
DX: R60.0 Localized edema (principal); K74.60 Unspecified cirrhosis of liver; I10 Essential (primary) hypertension; E11.9 Type 2 diabetes mellitus without complications; Z86.73 Personal history of transient ischemic attack (TIA), and cerebral infarction without residual deficits
CPT/HCPCS: 83880; J1940; Q0092

== ENCOUNTER 2020-01-16 23:36 | Emergency (ER) | payer OTHER ==
[~2020-01-16] VITALS: Ht 162.6 cm; Wt 72.6 kg
[~2020-01-16 23:36] MED LIST changes: +[UNRECOGNIZED DRUG - OTHER] IV
[2020-01-16 23:44] VITALS: Ht 162.6 cm; Wt 72.6 kg
[2020-01-17 01:55] VITALS: BP 141/52
== END 2020-01-17 01:55 | disposition home or self-care (01) ==
LOC: ED 23:36
DX: F41.9 Anxiety disorder, unspecified (principal); R06.00 Dyspnea, unspecified; I10 Essential (primary) hypertension; E11.9 Type 2 diabetes mellitus without complications